=== PATIENT | male | born 2000 | race Caucasian/White ===

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

== ENCOUNTER 2021-12-18 04:43 | Emergency (ER) | payer OTHER ==
[~2021-12-18] VITALS: Ht 177.8 cm; Wt 91.0 kg
[~2021-12-18 04:43] MED LIST: AMOX1TAB61 PO; HYDR-1179 PO
--- NOTE | 2021-12-18 04:44 | PHYS DOC ---
Past History Past Medical History: Anxiety, Asthma, Other Past Surgical History: Other Smoking: Non-smoker, Cigarettes Alcohol Use: None Drug Use: None General Adult HPI: HPI: " I fell .. I hurt my Lt collar bone.." " I was just getting out of bed. getting ready to go to work.. . and tripped and fell.. " Patient is a 21 year old male who presents with above hx and complaints left clavicle injury. Patient has a contusion at site. Distal neurovascular intact in left arm. Breath sounds equal. Patient denies other injury and fall. Patient has not taken any pain meds. No recent travel. No severe ill contacts. Did not get COVID vaccination. Did not get flu vaccination. Review of Systems: Review of Systems: Constitutional: Denies fever or chills Eyes: Denies change in visual acuity HENT: Denies nasal congestion or sore throat Respiratory: Complains of left clavicle injury Cardiovascular: Denies chest pain or edema GI: Denies abdominal pain, nausea, vomiting, bloody stools or diarrhea : Denies dysuria Musculoskeletal: Denies back pain or joint pain Integument: Denies rash Neurologic: Denies headache, focal weakness or sensory changes Endocrine: Denies polyuria or polydipsia Lymphatic: Denies swollen glands Psychiatric: Denies depression or anxiety Family History: Family History: Noncontributory to presentation Current Medications: Current Meds: See nursing for home meds Allergies: Allergies: Allergies Coded Allergies Type Severity Reaction Last Updated Verified No Known Drug Allergies 04/05/17 No Physical Exam: PE: Constitutional: Well developed, well nourished, no acute distress, non-toxic appearance. [] HENT: Normocephalic, atraumatic, bilateral external ears normal, oropharynx moist, no oral exudates, nose normal. [] Eyes: PERRLA, EOMI, conjunctiva normal, no discharge. [] Neck: Normal range of motion, no tenderness, supple, no stridor. [] Cardiovascular:Heart rate regular rhythm, no murmur []. Lungs & Thorax: Bilateral breath sounds clear to auscultation [. Has] contusion left clavicle. Abdomen: Bowel sounds normal, soft, no tenderness, no masses, no pulsatile masses. [] Skin: Warm, dry, no erythema, no rash. [] Back: No tenderness, no CVA tenderness. [] Extremities: No tenderness, no cyanosis, no clubbing, ROM intact, no edema. [Scar left hand- dog bite Neurologic: Alert and oriented X 3, normal motor function, normal sensory function, no focal deficits noted. [] Psychologic: Affect normal, judgement normal, mood normal. [] EKG: EKG: [] Radiology/Procedures: Radiology/Procedures: [][place] [address] IMAGING REPORT Signed PATIENT: SHIRLEY VILLEDA ACCOUNT: [id number] : 2000 LOCATION: ER AGE: 21 SEX: M EXAM STATUS: REG ER ORD. PHYSICIAN: BENTLEY ROSEN MD REASON: fell into bed side stand- injury to left clavicle PROCEDURE: PORTABLE CHEST 1V XR CHEST 1V Clinical History: Reason: fell into bed side stand- injury to left clavicle / Spl. Instructions: / History: Technique: AP view of the chest was obtained at 12/18/2021 4:56 AM. Comparison: None. Findings: The cardiomediastinal silhouette is normal. The pulmonary vasculature is normal. The lungs and pleural margins are clear. Impression: No evidence of an acute cardiopulmonary process. Electronically signed by: Vanda Lr III, MD (12/18/2021 5:22 AM) [facility] DICTATED AND SIGNED BY: VANDA LR III, MD DATE: 12/18/21520 CC: BENTLEY ROSEN MD; PCP,NO ~ Heart Score: C/O Chest Pain: N/A Risk Factors: Risk Factors: DM, Current or recent (<one month) smoker, HTN, HLP, family history of CAD, obesity. Risk Scores: Score 0 - 3: 2.5% MACE over next 6 weeks - Discharge Home Score 4 - 6: 20.3% MACE over next 6 weeks - Admit for Clinical Observation Score 7 - 10: 72.7% MACE over next 6 weeks - Early Invasive Strategies Course & Med Decision Making: Course & Med Decision Making Pertinent Labs and Imaging studies reviewed. (See chart for details) Tylenol and ibuprofen for pain. Ice packs as needed. Follow-up primary care. Return if any concerns. Impression: 1. Lt. clavicle contusion [] Dragon Disclaimer: Dragon Disclaimer: This electronic medical record was generated, in whole or in part, using a voice recognition dictation system. Departure Departure: Referrals: PCP,NO (PCP) Jose Disclaimer This chart was dictated in whole or in part using Voice Recognition software in a busy, high-work load, and often noisy Emergency Department environment. It may contain unintended and wholly unrecognized errors or omissions. BENTLEY ROSEN MD December 18, 2021 04:44
[2021-12-18 04:59] VITALS: BP 139/86
[2021-12-18] MEDS ORDERED: IBUPROFEN 600 MG TABLET. PO ONE (05:00)
--- NOTE | 2021-12-18 05:24 | RAD ---
XR CHEST 1V Clinical History: Reason: fell into bed side stand- injury to left clavicle / Spl. Instructions: / H istory: Technique: AP view of the chest was obtained at 12/18/2021 4:56 AM. Comparison: None. Findings: The cardiomediastinal silhouette is normal. The pulmonary vasculature is normal. The lungs and pleura l margins are clear. Impression: No evidence of an acute cardiopulmonary process. Electronically signed by: Jason Plaza III, MD (12/18/2021 5:22 AM) [facility]
== END 2021-12-18 05:25 | disposition home or self-care (01) ==
LOC: ER 04:43
DX: S40.012A Contusion of left shoulder, initial encounter (principal); F41.9 Anxiety disorder, unspecified; J45.909 Unspecified asthma, uncomplicated; W01.0XXA Fall on same level from slipping, tripping and stumbling without subsequent striking against object, initial encounter; Y93.89 Activity, other specified; Y92.89 Other specified places as the place of occurrence of the external cause; Y99.8 Other external cause status
CPT/HCPCS: 71045; 99283